=== PATIENT | male | born 1950 | race Caucasian/White ===

== ENCOUNTER 2019-01-01 16:32 | Emergency (ER) | payer BC, MEDICARE ==
[~2019-01-01] VITALS: Ht 172.7 cm; Wt 70.9 kg
[~2019-01-01 16:32] MED LIST: NO HOME MEDICATIONS
[2019-01-01] MEDS ORDERED: CEPHALEXIN500 M1 PO (18:25)
[2019-01-01 18:40] VITALS: BP 130/69; PULSE 75; TEMP 97.8
== END 2019-01-01 18:40 | disposition home or self-care (01) ==
LOC: COL.ER 16:32
DX: S61.211A Laceration without foreign body of left index finger without damage to nail, initial encounter (principal); Z23 Encounter for immunization; Z87.891 Personal history of nicotine dependence; W26.8XXA Contact with other sharp object(s), not elsewhere classified, initial encounter; Y92.009 Unspecified place in unspecified non-institutional (private) residence as the place of occurrence of the external cause

== ENCOUNTER → 2020-11-06 | Outpatient (CLI) | payer MEDICARE, BC ==
[~2020-11-06] MED LIST changes: +CEPHALEXIN500 M1 PO
== END ==
LOC: COL.RAD 10:07
DX: Z13.6 Encounter for screening for cardiovascular disorders (principal)

== ENCOUNTER 2022-09-30 20:28 | Emergency (ER) | payer MEDICARE, BC ==
[~2022-09-30] VITALS: Ht 172.7 cm; Wt 70.5 kg
[2022-09-30 20:34] VITALS: TEMP 99.2
[2022-09-30] MEDS ORDERED: NORCO 325 MG-51 TAB PO (21:38)
[2022-09-30 22:00] VITALS: BP 124/75; PULSE 68
== END 2022-09-30 22:15 | disposition home or self-care (01) ==
LOC: COL.ER 20:28
DX: S22.41XA Multiple fractures of ribs, right side, initial encounter for closed fracture (principal); W11.XXXA Fall on and from ladder, initial encounter

== ENCOUNTER → 2024-01-24 | Outpatient (CLI) | payer MEDICARE, BC ==
[~2024-01-24] MED LIST changes: +FLOMAX 0.40.4 MG/CAP PO; +NORCO 325 MG-51 TAB PO
== END ==
LOC: COL.LAB 15:54
DX: R39.15 Urgency of urination (principal); R30.0 Dysuria